=== PATIENT | male | born 2000 | race Caucasian/White ===

== ENCOUNTER 2021-10-26 18:20 | Emergency (ER) | payer OTHER, SELFPAY ==
[2021-10-26 18:39] VITALS: BP 125/84; PULSE 80; RESP 18; TEMP 36.9; O2SAT 100
--- NOTE | 2021-10-26 18:49 | ED.URI ---
HPI - URI/Sore Throat General Chief Complaint: Upper Respiratory Infection Stated Complaint: COVID Symptoms Source: patient and RN notes reviewed Mode of arrival: ambulatory History of Present Illness HPI Narrative: This is a 21-year-old male who presented to urgent care with complaints of a sore throat, headache, congestion, chills, shortness of breath and a cough that all developed on Sunday. Patient used Flonase at home to relieve assessment due to congestion. he is vaccinated. The patient denies CP, palpitation, extremity numbness, lightheadedness, dizziness, constipation, diarrhea, chills, or fever. Related Data Allergies Allergy/AdvReac Type Severity Reaction Status Date / Time No Known Allergies Allergy Verified 10/26/21 18:42 Review of Systems Review of Systems: A 14 organ system Review of Systems was performed and pertinent positives included in the HPI, otherwise remaining ROS is negative. Exam Narrative: GENERAL: This is a well-nourished, well-developed patient, in no apparent distress. HEAD: normocephalic, atraumatic. EYES: PERRL. Sclera clear/white. Vision is grossly intact. EARS: External ears normal, auditory canals clear and without drainage, TMs normal without perforation. Hearing grossly intact. NOSE: External nose normal with no obvious nasal discharge, nares without redness, no rhinorrhea. THROAT: Mucous membranes moist, posterior pharynx clear. NECK: Neck supple, non-tender without lymphadenopathy, masses or thyromegaly. CARDIOVASCULAR: Regular rate and rhythm without murmurs, gallops, or rubs. RESPIRATORY: Clear to auscultation. Breath sounds equal bilaterally. No wheezes, rales, or rhonchi. GASTROINTESTINAL: Abdomen soft, non-tender, nondistended. Bowel sounds are active. No hepato-splenomegaly, or palpable masses. No guarding. SKIN: warm, intact with no suspicious lesions or rash, good texture and turgor. NEURO: awake, alert, and oriented to person, place and time. There were no obvious focal neurologic abnormalities. Steady gait EXTREMITIES: Normal range of motion. No edema. No calf tenderness. Negative Homans sign bilaterally. BACK: Nontender without deformity or crepitance. No flank tenderness. Course Course Emergency Course: Patient will be treated with albuterol, Tessalon Perles, dexamethasone, Flonase, Claritin, and guaifenesin Level of Care: Express Care Visit Vital Signs Vital signs: Vital Signs Temperature 98.4 F 10/26/21 18:39 Pulse Rate 80 10/26/21 18:39 Respiratory Rate 18 10/26/21 18:39 Blood Pressure 125/84 10/26/21 18:39 Pulse Oximetry 100 10/26/21 18:39 Temperature 98.4 F 10/26/21 18:39 Pulse Rate 80 10/26/21 18:39 Respiratory Rate 18 10/26/21 18:39 Blood Pressure 125/84 10/26/21 18:39 Pulse Oximetry 100 10/26/21 18:39 MDM - URI/Sore Throat Differential Diagnosis Differential diagnosis: Likely upper respiratory infection, viral infection, influenza and other (covid) Lab Data Labs: Lab Results 10/26/21 Range/Units 18:38 POC SARS CoV-2 Ag Positive (Negative) Discharge Plan Discharge Clinical Impression: COVID Patient Disposition: Home, Self-Care Condition: Stable Instructions: Antibiotic Form, COVID-19 (Coronavirus Disease 2019) (ED) Additional Instructions: Remain isolation/quarantine means to stay separate from other people, so that sickness is not spread for 10 days. Your Local Health Department will be contacting you to verify that you have received and can follow these instructions. If you have not been contacted, please call your Local Health Department immediately! Follow these guidelines while in isolation: Stay home: Stay in your home or apartment until you are instructed that you can leave. If you need medical care, call ahead so that staff can prepare for your arrival. DO NOT go to your doctor?s office, an ER or urgent care
== END 2021-10-26 19:05 | disposition home or self-care (01) ==
PROVIDERS: Emergency Provider Nurse Practitioner
DX: U07.1 COVID-19 (principal)
CPT/HCPCS: 87426; 99213; C9803; G0463

== ENCOUNTER 2022-03-12 19:48 | Emergency (ER) | payer OTHER, SELFPAY ==
--- NOTE | 2022-03-12 19:49 | ED.EAR ---
HPI - Ear Problem General Chief complaint: Ear Stated complaint: ear problems Time Seen by Provider: 03/12/22 19:54 Source: patient, RN notes reviewed and old records reviewed Mode of arrival: ambulatory Limitations: no limitations History of Present Illness HPI Narrative: 21-year-old male presents to the [facility] with right ear pain since this morning. Patient has not taken anything for his symptoms. States he has had a runny nose and a headache. Left work early today because of the ear pain. Denies chest pain, abdominal pain. No nausea vomiting or diarrhea. Denies fevers. No blurriness, change in vision. MD Complaint: ear pain Related Data Allergies Allergy/AdvReac Type Severity Reaction Status Date / Time No Known Allergies Allergy Verified 03/12/22 19:52 Review of Systems Review of Systems: All systems reviewed & are unremarkable except as noted in HPI and below Constitutional: Constitutional: Reports no additional constitutional complaints, Denies chills and Denies fever(s) Eyes: Eyes: Reports no additional eye complaints ENT: Reports as per HPI, Denies change in voice, Denies dental pain, Denies vertigo, Denies dizziness and Denies throat swelling Comments: Ear pain, right. Rhinorrhea Cardiovascular: Cardiovascular: Reports no additional cardiovascular complaints, Denies chest pain and Denies dyspnea Respiratory: Respiratory: Reports no additional respiratory complaints, Denies cough and Denies dyspnea Gastrointestinal: Gastrointestinal: Reports no additional gastrointestinal complaints, Denies abdominal pain, Denies nausea and Denies vomiting Musculoskeletal: Musculoskeletal: Reports no additional musculoskeletal complaints Integumentary/Breasts: Skin/Breast: Reports system reviewed and no additional complaints, except as docu Neurologic: Reports system reviewed and no additional complaints, except as documented, Denies vertigo and Denies dizziness Psychiatric: Psychiatric: Reports no additional psychiatric complaints Allergic/Immunologic: Allergic/Immunologic: Reports no additional allergic/immunologic complaints and Denies throat swelling PMFSH Past Medical History Medical History (Updated 03/12/22 @ 20:09 by Manisha Nieves APRN) COVID Surgical History Surgical History (Updated 03/12/22 @ 20:06 by Manisha Nieves APRN) No pertinent past surgical history Social History Social History (Updated 03/12/22 @ 20:06 by Manisha Nieves APRN) Gender identity (if verbalized by the patient): Male Comments At the time of my signature, I reviewed and agree with the nursing past medical, surgical, social, and family history. There is no relevant family history pertinent to the patient complaint. Exam Const: General: healthy appearing and no acute distress Nutritional Appearance: well nourished Orientation/consciousness: patient oriented x3 Limitations: no limitations HENMT: Head: normal to inspection Ears: external ears normal, EAC's normal and TM abnormal erythematous (Mildly pink right ear) and with fluid behind the TM bilateral General nose exam: Normal external nose present and Normal nasal mucous membranes and turbinates present Face and sinus: normal facial exam Mouth: Yes Normal oral and palatal mucosa present Throat: posterior oropharynx normal, tonsils normal and uvula midline Eyes: Conjunctivae: conjunctivae normal Pupils: Equal, round and reactive pupils present Neck: Neck: normal visual inspection, no lymphadenopathy and no meningeal signs Chest: Chest palpation & inspection: normal inspection of the chest Resp: Effort & Inspection: normal respiratory effort and no use of accessory muscles Auscultation: clear to auscultation bilaterally, no crackles, no rales, no rhonchi and no wheezes Cardio: Rate: regular rate Rhythm: regular rhythm Skin: General skin exam: normal color Rashes: no rashes Wounds: no wounds Neuro: General: patient oriented x3, gait normal, moves all
[2022-03-12 19:55] VITALS: BP 131/80; PULSE 81; RESP 18; TEMP 37.5; O2SAT 99
== END 2022-03-12 20:16 | disposition home or self-care (01) ==
PROVIDERS: Emergency Provider Nurse Practitioner
DX: H65.02 Acute serous otitis media, left ear (principal); H66.001 Acute suppurative otitis media without spontaneous rupture of ear drum, right ear; Z86.16 Personal history of COVID-19
CPT/HCPCS: 99213; G0463

== ENCOUNTER 2024-02-28 16:15 | Emergency (ER) | payer OTHER, SELFPAY ==
[2024-02-28 16:22] VITALS: BP 133/68; PULSE 85; RESP 18; TEMP 36.7; O2SAT 98
--- NOTE | 2024-02-28 16:31 | ED.MALEGU ---
HPI - Male Genitourinary General Chief complaint: Urogenital-Male Stated complaint: Groin Pain Time Seen by Provider: 02/28/24 16:16 Source: patient Mode of arrival: ambulatory Limitations: no limitations History of Present Illness HPI Narrative: Patient is a 23-year-old male who presents with bilateral testicular pain for 6 days. Patient states pain comes and goes and started in the right testicle and now it is in both. Denies any swelling, discoloration, warmth to scrotum or testicles. Denies any abnormal discharge or changes in urinary habits. Denies any concern for STI. Denies any trauma to testicles. Related Data Allergies Allergy/AdvReac Type Severity Reaction Status Date / Time No Known Allergies Allergy Verified 03/12/22 19:52 Review of Systems Review of Systems: All systems reviewed & are unremarkable except as noted in HPI and below Constitutional: Constitutional: Denies chills, Denies fever(s), Denies headache(s), Denies malaise and Denies weakness Eyes: Eyes: Denies change in vision, Denies eye discharge and Denies irritation ENT: Denies otalgia, Denies headache(s), Denies nasal congestion, Denies nasal discharge, Denies sinus pain and Denies sore throat Cardiovascular: Cardiovascular: Denies chest pain, Denies edema, Denies palpitations and Denies dyspnea Respiratory: Respiratory: Denies cough and Denies dyspnea Gastrointestinal: Gastrointestinal: Denies abdominal pain, Denies diarrhea, Denies nausea and Denies vomiting Genitourinary: Genitourinary: Denies hematuria, Denies dysuria, Denies flank pain, Denies painful ejaculations, Denies penile discharge, Denies scrotal swelling, Denies testicular mass, Reports testicular pain and Denies urinary urgency Musculoskeletal: Musculoskeletal: Denies back pain and Denies numbness Integumentary/Breasts: Skin/Breast: Denies pruritus and Denies rash Neurologic: Denies headache(s), Denies numbness and Denies weakness Psychiatric: Psychiatric: Reports no additional psychiatric complaints Endocrine: Endocrine: Denies palpitations PMFSH Past Medical History Medical History COVID Surgical History Surgical History No pertinent past surgical history Social History Social History Gender identity (if verbalized by the patient): Male Comments At time of signature, agree with nursing past medical, surgical, social and family history. There is no relevant family history pertinent to the presenting complaint. Exam Const: General: cooperative, healthy appearing, comfortable, no acute distress and well nourished Nutritional Appearance: well nourished Orientation/consciousness: patient oriented x3 HENMT: Head: normocephalic and atraumatic Ears: external ears normal Face/Nose/Sinus: Normal external nose present, Normal nares present and normal facial exam Face and sinus: normal facial exam Eyes: General: appearance normal, both eyes and all related structures Pupils: Equal, round and reactive pupils present EOM: EOMs intact bilaterally Neck: Neck: normal visual inspection, full ROM and supple Chest: Chest palpation & inspection: normal inspection of the chest Resp: Effort & Inspection: normal respiratory effort and able to speak in complete sentences Cardio: Rate: regular rate Rhythm: regular rhythm GI: Inspection: normal to inspection GI Palp: No abdominal tenderness and Yes Soft to palpation : General: Yes no CVA tenderness Male General Exam: Yes normal external exam Penis: Yes normal penis and Yes circumcised Meatus: meatus normal Scrotum: scrotum normal, no ecchymosis, not erythematous, testes descended bilaterally, no scrotal swelling and no varicoceles Testes: testicular lie normal, not enlarged, no epididymal induration, epididymal tenderness bilateral, no testicular mass, no te
== END 2024-02-28 16:41 | disposition home or self-care (01) ==
PROVIDERS: Emergency Provider Nurse Practitioner Family
DX: N45.1 Epididymitis (principal)
CPT/HCPCS: 99213; G0463

== ENCOUNTER 2024-04-09 11:53 | Emergency (ER) | payer OTHER, SELFPAY ==
[2024-04-09 12:04] VITALS: BP 131/70; PULSE 65; RESP 18; TEMP 37.1; O2SAT 99
--- NOTE | 2024-04-09 12:18 | ED.URI ---
HPI - URI/Sore Throat General Chief Complaint: Upper Respiratory Infection Stated Complaint: ?Strep Time Seen by Provider: 04/09/24 12:20 Source: patient, RN notes reviewed and old records reviewed Mode of arrival: ambulatory Limitations: no limitations History of Present Illness HPI Narrative: 24 year old male who presents to [facility] care with complaints of sore throat for the past 2 days with no known fevers, chills or sweats. Patient reports no ear pain or acute sinus congestion or drainage, states little cough. Patient reports he has taken Mucinex for his symptoms. MD elicited complaint: cough and sore throat Onset (ago): day(s) (2) Severity: moderate Pain scale (0-10): 5 Able to tolerate fluids by mouth: Yes Exacerbating factors: swallowing Treatments prior to arrival: other (Mucinex) Related Data Allergies Allergy/AdvReac Type Severity Reaction Status Date / Time No Known Allergies Allergy Verified 04/09/24 12:21 Review of Systems Review of Systems: CONSTITUTIONAL: Denies malaise, chills, sweats, or fever. EYES: Denies visual changes, redness, or discharge. ENT: Reports no acute rhinorrhea, congestion, sinus pain,no otalgia and positive for sore throat. CARDIOVASCULAR: Denies chest pain, palpitations, or edema. RESPIRATORY: Reports some cough.? Denies dyspnea. GASTROINTESTINAL: Denies abdominal pain, nausea, vomiting, diarrhea SKIN: Denies rash or itching. MUSCULOSKELETAL: Denies myalgia. NEUROLOGIC: Denies headache. All systems reviewed & are unremarkable except as noted in HPI and below PMFSH Past Medical History Medical History COVID Surgical History Surgical History No pertinent past surgical history Social History Social History (Updated 04/10/24 @ 15:43 by Tyra Dudley NP) Smoking status: Never smoker Alcohol intake: current Alcohol use details: social Substance use type: does not use Gender identity (if verbalized by the patient): Male Comments At time of signature, agree with nursing past medical, surgical, social and family history. There is no relevant family history pertinent to the presenting complaint Exam Narrative: GENERAL: Well-appearing, well-nourished, and in no acute distress. HEAD: Normocephalic EYES: PERRLA, conjunctivae clear ENT: Nares clear, turbinates edematous and erythematous, clear discharge. Mucous membranes moist. TM pearly valladares with dull light reflex bilaterally; no tragal tenderness. Oropharynx erythematous without lesions. Tonsils red enlarged and without exudate, no drooling, no hoarseness, no trismus, uvula midline. NECK: Supple. lymphadenopathy CHEST: Clear to auscultation, breath sounds equal. No wheezing, rhonchi, rales, or stridor. No respiratory distress, speaks in full sentences.SAO2 99% on room air HEART: Regular rate and rhythm. No murmur heard. SKIN: Warm, dry, no rash. NEURO: Alert and oriented x3. PSYCH: Normal mood and affect Course Course Emergency Course: Patient is aware of diagnosis, understands and agrees to treatment plan.? Anticipatory guidance given.? Patient agrees to follow-up as directed and is aware of reasons to seek care at the emergency department. Portions of this record may have been created with voice recognition software Level of Care: Express Care Visit Vital Signs Vital signs: Vital Signs Temperature 37.1 C 04/09/24 12:04 Pulse Rate 65 04/09/24 12:04 Respiratory Rate 18 04/09/24 12:04 Blood Pressure 131/70 04/09/24 12:04 Pulse Oximetry 99 04/09/24 12:04 Oxygen Delivery Room Air 04/09/24 12:04 Temperature 37.1 C 04/09/24 12:04 Pulse Rate 65 04/09/24 12:04 Respiratory Rate 18 04/09/24 12:04 Blood Pressure 131/70 04/09/24 12:04 Pulse Oximetry 99 04/09/24 12:04 Oxygen Delivery Room Air 04/09/24 12:04 Reviewed
== END 2024-04-09 12:55 | disposition home or self-care (01) ==
PROVIDERS: Emergency Provider Registered Nurse
DX: J02.0 Streptococcal pharyngitis (principal); Z86.16 Personal history of COVID-19
CPT/HCPCS: 87880; 99213; G0463

== ENCOUNTER 2024-12-15 09:07 | Emergency (ER) | payer OTHER, SELFPAY ==
--- NOTE | ~2024-12-15 | CT_ITS ---
CT abdomen pelvis w con Ordering provider: Jasmyn Crews PA-C History: 24 years Male with . RUQ pain . Comparison: None. Technique: CT abdomen and pelvis with IV and without oral contrast. Automated exposure control and it erative reconstruction technique were employed. The dose-length product was 595.40 mGy-cm. 100 mL Omn ipaque 350 was given IV. Findings: VISUALIZED LOWER CHEST: Dependent atelectatic changes. UPPER ABDOMINAL ORGANS: Liver: Normal. Gallbladder: Normal. Spleen: Normal. Stomach/duodenum: Normal. Pancreas: Normal. Adrenals: Normal. Kidneys: Normal. PELVIC ORGANS: The bladder is normal. BOWEL AND MESENTERY: Colon: No evidence of diverticulitis. Appendix is not demonstrated. Small Bowel: Normal. No obstruction. Peritoneum/mesentery: No free air or free fluid. No mesenteric lymphadenopathy. RETROPERITONEUM: Normal aorta. No retroperitoneal lymphadenopathy. MUSCULOSKELETAL: Superficial soft tissues: The superficial soft tissues are normal. Bones: Sclerotic area in the right ischium. Follow-up advised. Otherwise, Normal spine. IMPRESSION: 1. No evidence of appendicitis, diverticulitis or intestinal obstruction. Reviewed, dictated and finalized at location A.
[2024-12-15 09:11] VITALS: BP 138/90; PULSE 74; RESP 16; TEMP 36.4; O2SAT 100
--- NOTE | 2024-12-15 09:20 | ECG_ITS ---
Test Date: 2024-12-15 10:04:19 Measurements Intervals [place] Rate: 64 P: 62 NV: 172 QRS: 62 QRSD: 94 T: 38 QT: 356 QTc: 369 Interpretive Statements SINUS RHYTHM No previous ECG available for comparison Electronically Signed On 12-15-2024 11:49:59 CDT by Gael Lopez M.D.
--- NOTE | 2024-12-15 09:20 | ED.ABDPAIN ---
HPI - Abdominal Pain General Chief Complaint: Abdominal Pain Stated Complaint: abd pain Time Seen by Provider: 12/15/24 09:09 Source: patient Mode of arrival: ambulatory Limitations: no limitations History of Present Illness HPI narrative: This is a 24-year-old male that presents to the emergency department for epigastric abdominal pain. Ongoing over the last week. Reports associated nausea and diarrhea. Reports the pain has now localized to his right upper quadrant. He went to urgent care and was found to be seen in the ER for further evaluation. Denies fevers, vomiting. Related Data Allergies Allergy/AdvReac Type Severity Reaction Status Date / Time No Known Allergies Allergy Verified 04/09/24 12:21 Review of Systems Review of Systems: CONSTITUTIONAL: Denies fever GASTROINTESTINAL: Reports abdominal pain, nausea, and diarrhea. GENITOURINARY: Denies dysuria or hematuria. All systems reviewed & are unremarkable except as noted in HPI and below PMFSH Past Medical History Medical History COVID Surgical History Surgical History No pertinent past surgical history Social History Social History (Updated 04/10/24 @ 15:43 by Tyra Dudley NP) Smoking status: Never smoker Alcohol intake: current Alcohol use details: social Substance use type: does not use Gender identity (if verbalized by the patient): Male Exam Narrative: GENERAL: Well-appearing, well-nourished, and in no acute distress. HEAD: Normocephalic, atraumatic. EYES: EOMI. CHEST: Clear to auscultation. No respiratory distress. No wheezes rales or rhonchi HEART: Regular rate and rhythm. No murmur heard. Normal peripheral pulses. ABDOMEN: Soft, nondistended, normal active bowel sounds. Mild tenderness to palpation in the epigastrium, without guarding EXTREMITIES: Normal range of motion. No edema. SKIN: Warm, dry, no rash. NEURO: No focal deficits. Alert and oriented x3. PSYCH: Normal mood and affect Course Course Emergency Course: Patient updated on his workup. Resting comfortably Vital Signs Vital signs: Vital Signs Temperature 97.6 F 12/15/24 09:11 Pulse Rate 74 12/15/24 09:11 Respiratory Rate 16 12/15/24 09:11 Blood Pressure 138/90 12/15/24 09:11 Pulse Oximetry 100 12/15/24 09:11 Oxygen Delivery Room Air 12/15/24 09:11 Temperature 97.6 F 12/15/24 09:11 Pulse Rate 74 12/15/24 09:11 Respiratory Rate 16 12/15/24 09:11 Blood Pressure 138/90 12/15/24 09:11 Pulse Oximetry 100 12/15/24 09:11 Oxygen Delivery Room Air 12/15/24 09:11 MDM - Abdominal Pain MDM Narrative Medical decision making narrative: Patient presents to the emergency department for epigastric and right upper quadrant pain. Ongoing over the last week. Patient is afebrile and nontoxic appearing. Cbc without leukocytosis. Metabolic panel with mild elevation in ALT is 71. Lipase is normal. Urine without evidence of infection. CT abdomen and pelvis without acute findings. Patient updated on his workup. Resting comfortably. Is to follow up with primary provider. He was given warnings to return to the ER Differential Diagnosis Differential diagnosis: Likely abdominal pain, pancreatitis and other (Biliary colic, GERD, gastritis, cholecystitis) Lab Data Attestation: I reviewed the patient's lab results. 12/15/24 09:38 12/15/24 09:38 Labs: Lab Results 12/15/24 12/15/24 Range/Units 09:38 09:45 WBC 6.6 (4.5-10.0) K/mm3 RBC 4.84 (4.6-6.20) M/mm3 Hgb 14.3 (14.0-18.0) g/dL Hct 44.1 (42.0-52.0) % MCV 91.1 (80-100) fl MCH 29.5 (26-34) pg MCHC 32.4 (32-36) g/dl RDW 12.7 (11.5-14.5) % Plt Count 214 (150-375) k/mm3 MPV 9.4 (7.4-10.4) fl Immature Gran % (Auto) 0.3 (0-0.5) % Neut % (Auto) 67.5 (45.5-73.1) % Lymph % (Auto) 22.3 (18.3-44.2) % [place] % (Auto) 8.1 (2.6-8.5) % Eos % (Auto) 1.2 (0-4.4) % Baso % (Auto) 0.6 (0.2-1.2) % Lymph # (Auto) 1.46 (0.9-3.2) K/mm3 [place] # (Auto) 0.5 (0.1-0.6) K/mm3 Eos # (Auto) 0.1 (0-0.3) K/mm3 Baso # (Auto) 0.0 (0.0-0.1) K/mm3 Abs Immat Gran (auto) 0.02 (0.00-0.031) K/mm3 Absolute Neuts (auto) 4.4 (1.3-6.7) K/mm3 Absolute Nucleated RBC 0.000 (0.0-0.012) K/mm3 Nucleated RBC % 0.0 (0.0-0.2) % Sodium 142 (137-145) mmol/L Potassium 4.1 (3.4-5.0) mmol/L Chloride 106 (98-107) mmol/L Carbon Dioxide 29 (22-30) mmol/L Anion Gap 7 (4-12) mmol/L BUN 11 (9-20) mg/dL Creatinine 0.72 (0.7-1.3) mg/dL Estim Creat Clear Calc 133 ml/min Estimated GFR > 60 (59 - ) Glucose 102 (65-110) mg/dL Calcium 9.4 (8.4-10.2) mg/dL Total Bilirubin 0.6 (0.2-1.3) mg/dL AST 29 (17-59) U/L ALT 71 H (6-50) U/L Alkaline Phosphatase 64 (38-126) U/L Troponin I < 0.012 (0.000-0.034) ng/mL Total Protein 7.0 (6.3-8.2) g/dL Albumin 4.6 (3.5-5.1) g/dL Lipase 31 (23-300) U/L Urine Color Yellow (Yellow) Urine Appearance Clear (Clear) Urine pH 8.0 (5.0-9.0) Ur Specific [place] 1.008 (1.001-1.035) Urine Protein Negative (Negative) mg/dL Urine Glucose (UA) Negative (Negative) mg/dL Urine Ketones Negative (Negative) mg/dL Ur Blood (Man) Negative (Negative) Urine Nitrate Negative (Negative) Urine Bilirubin Negative (Negative) Urine Urobilinogen 0.2 (<2.0) mg/dL Leukocyte Esterase Rfl Negative (Negative) [place]/UL Imaging Data Radiologist's impression: ITS Impressions Abdomen/Pelvis CT 12/15/24 10:29 IMPRESSION: 1. No evidence of appendicitis, diverticulitis or intestinal obstruction. ECG Data EKG #1: ECG completion date: 12/15/24 normal rate, sinus rhythm, non-specific ST changes (consistent with early repolarization) and normal QT Critical Care Time Critical Care Time Critical Care Time: No Discharge Plan Discharge Clinical Impression: Epigastric pain, Right upper quadrant abdominal pain Patient Disposition: Home, Self-Care Condition: Stable Instructions: Low Fat Diet (ED), Epigastric Pain (ED) Additional Instructions: Return to the ER if you experience fever, abdominal pain with nausea and vomiting, you are unable to keep down liquids or solids, blood in the stool or any other symptoms that are concerning to you Small, frequent meals. [place] diet. Avoid spicy/acidic foods. Avoid eating just before bedtime. Avoid anti-inflammatories. Take Pepcid daily Follow up with your primary care doctor The radiologist mentioned an abnormality in your right ischium this may need some further imaging/follow up Patient Language: [place]i Prescriptions: No Action amoxicillin 400 mg/5 mL suspension for reconstitution 1,000 mg PO BID 10 Days Qty: 250 0RF Rx Instructions: take all of oral antibiotic as prescribed Follow-up/Referrals: UNKNOWN,DOCTOR [Primary Care Provider] -
[2024-12-15 09:49] LABS: Basophils Percent Auto 0.6 % (0.2-1.2); Eosinophils Absolute Auto 0.1 K/mm3 (0-0.3); Eosinophils Percent Auto 1.2 % (0-4.4); Hematocrit 44.1 % (42.0-52.0); Hemoglobin 14.3 g/dL (14.0-18.0); Immature Granulocyte Absolute 0.02 K/mm3 (0.00-0.031); Immature Granulocyte Percent A 0.3 % (0-0.5); Lymphocytes Absolute Auto 1.46 K/mm3 (0.9-3.2); Lymphocytes Percent Auto 22.3 % (18.3-44.2); Mean Corpuscular HGB Conc 32.4 g/dl (32-36); Mean Corpuscular Hemoglobin 29.5 pg (26-34); Mean Corpuscular Volume 91.1 fl (80-100); Mean Platelet Volume 9.4 fl (7.4-10.4); Monocytes Absolute Auto 0.5 K/mm3 (0.1-0.6); Monocytes Percent Auto 8.1 % (2.6-8.5); Neutrophils Absolute Auto 4.4 K/mm3 (1.3-6.7); Neutrophils Percent Auto 67.5 % (45.5-73.1); Platelet Count Result 214 k/mm3 (150-375); Red Blood Count 4.84 M/mm3 (4.6-6.20); Red Cell Distribution Width 12.7 % (11.5-14.5); White Blood Count 6.6 K/mm3 (4.5-10.0)
[2024-12-15 09:52] LABS: Add Urine Microscopic? NO; Appearance Urine Clear (Clear); Bilirubin Urine Negative (Negative); Blood Urine Negative (Negative); Color Urine Yellow (Yellow); Glucose Urine UA Negative (Negative); Ketones Urine Negative (Negative); Leukocyte Esterase Ur Negative LEU/UL (Negative); Nitrate Urine Negative (Negative); Protein Urine Negative (Negative); Specific Grav Ur 1.008 (1.001-1.035); Urobilinogen Urine 0.2 mg/dL (<2.0)
[2024-12-15] MEDS: ONDANSETRON INJ 4 MG/2 ML VIAL IV PUSH (09:56)
[2024-12-15] MEDS: PANTOPRAZOLE SODIUM IV 40 MG VIAL IV PUSH (09:56)
[2024-12-15 10:00] LABS: Alanine Aminotransferase 71 U/L (6-50); Albumin Level 4.6 g/dL (3.5-5.1); Alkaline Phosphatase 64 U/L (38-126); Anion Gap 7 mmol/L (4-12); Aspartate Amino Transferase 29 U/L (17-59); Bilirubin,Total 0.6 mg/dL (0.2-1.3); Blood Urea Nitrogen 11 mg/dL (9-20); Calcium 9.4 mg/dL (8.4-10.2); Carbon Dioxide 29 mmol/L (22-30); Chloride 106 mmol/L (98-107); Estimated CRCL calculation 133 ml/min; Estimated Glomerular Filt Rate > 60; Glucose 102 mg/dL (65-110); Lipase 31 U/L (23-300); Potassium 4.1 mmol/L (3.4-5.0); Sodium 142 mmol/L (137-145)
--- OUTSIDE RECORDS SUMMARY | 2024-12-15 10:05 | XMS_ITS | Clinical Summary ---
Author Organization [facility] [employer] [place] Address [address] [address] Care Team Providers Care Chief Ophthalmic Technician Name Role Phone Dilia Driscoll MD Primary Care Provider [phone] Allergies Active Allergy Reactions Criticality Noted Date Comments Misael Flavor Unknown 12/15/2023 Medications No known medications Active Problems No known active problems Encounters Date Type Department Care Team Description 12/02/2024 External Device Data STL ABSTRACTION Provider, Abstract 10/30/2024 External Device Data ST[facility] ABSTRACTION Provider, Abstract from Last 3 Months Family History Medical History Relation Name Comments No Known Problems Brother 1 No Known Problems Brother 2 No Known Problems Father Pacemaker Maternal Grandfather No Known Problems Maternal Grandmother No Known Problems Mother Relation Name Status Comments Brother 1 Alive Brother 2 Alive Father Alive Maternal Grandfather Alive Maternal Grandmother Alive Mother Alive Social History Tobacco Use Types Packs/Day Years Used Date Smoking Tobacco: Never Smokeless Tobacco: Never Alcohol Use Standard Drinks/Week Comments Yes 0 (1 standard drink = 0.6 oz pur e alcohol) socially Sex and Gender Information Value Date Recorded Sex Assigned at Not on file Legal Sex Male 10:15 AM CDT Gender Identity Not on file Sexual Orientation Not on file 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 file Not on file N ot on file Last Filed Vital Signs Vital Sign Reading Time Taken Comments Blood Pressure 112/78 02/25/2024 1:51 PM CDT Pulse 77 02/25/2024 1:51 PM CDT Temperature 36.6 C (97.9 F) 02/25/2024 1:51 PM CDT Respiratory Rate 16 02/25/2024 1:51 PM CDT Oxygen Saturation 98% 02/25/2024 1:51 PM CDT Inhaled Oxygen Concentration - - Weight 87.5 kg (193 lb) 02/25/2024 1:51 PM CDT Height 170.2 cm (5' 7 ) 02/25/2024 1:51 PM CDT Body Mass Index 30.23 02/25/2024 1:51 PM CDT Plan of Treatment Upcoming Encounters Date Type Department Care Team (Late st Contact Info) Description 12/19/2024 8:20 AM CDT Office Visit [facility] at [facility] [place] [address] [place] [address] Health Maintenance Due Date Last Done Comments DTAP/TDAP/TD VACCINES (7 - T d or Tdap) 05/26/2021 05/26/2011, 06/19/2005, 12/25/2002, Additional history exists INFLUENZA VACCINE (#1) 2024 HEPATITIS B VACCINES Completed 2001, 2001, 2001 HPV VACCINES Completed 07/03/2013, 10/2011, 06/07/2012 Insurance * Guarantor: [employer] D ([employer]) Account Type Relation to Patient Date of Phone Billing Address Corporate Employer ATTN: [employer] [address] [address] [employer] Care Teams Chief Ophthalmic Technician Relationship Specialty Start Date End Date Dilia Driscoll MD [address] [place] [address] PCP - General Internal Medicine 02/25/24
--- OUTSIDE RECORDS SUMMARY | 2024-12-15 10:05 | XMS_ITS | Patient Health Summary ---
Author Organization [facility] Address [address] [place] [address] Care Team Providers Care Package Line Relief Operator Name Role Phone Ramona Oneal MD Primary Care Provider [phone] Note from [facility] [place],non-owned Affiliates and Associated Physician Practices is amultiple site organization consisting of ambulatory clinics and hospital sitesin [place], [place], [place] and [place]. This disclosure is being madepursuant to the Care Everywhere program and may not contain all information available regarding this patient. Last updated 18.[facility] Medications Be aware that medications may not be up to date on this document. Always verify current medications with the patient. No known medications Active Problems Problem Noted Date Diagnosed Date Short stature (child) 08/08/2016 Social History Tobacco Use Types Packs/Day Years Used Date Smoking Tobacco: Never Tobacco Cessation:Counseling Given: No Alcohol Use Standard Drinks/Week Comments No 0 (1 standard drink = 0.6 oz pur e alcohol) Sex and Gender Information Value Date Recorded Sex Assigned at Not on file Gender Identity Not on file Sexual Orientation Not on file Last Filed Vital Signs Vital Sign Reading Time Taken Comments Blood Pressure 104/80 08/07/2016 3:51 PM CDT Pulse 80 08/07/2016 3:51 PM CDT Temperature - - Respiratory Rate 20 08/07/2016 3:51 PM CDT Oxygen Saturation - - Inhaled Oxygen Concentration - - Weight 63.7 kg (140 lb 6.9 oz) 08/07/2016 3:51 P M CDT Height 157.6 cm (5' 2.05 ) 08/07/2016 3:51 PM CD T Body Mass Index 25.65 08/07/2016 3:51 PM CDT Procedures * IMAGING/RADIOLOGY/XRAY RESULTS ORDER(Performed 08/18/2016) Results * IMAGING/RADIOLOGY/XRAY RESULTS ORDER (08/18/2016 5:48 PM SPINNER OPEN END) Anatomical Region Laterality Modality Other Narrative 08/18/2016 5:48 PM SPINNER OPEN END Ordered by an unspecified provider. Scanned Document IMAGING Care Teams Package Line Relief Operator Relationship Specialty Start Date End Date Ramona Oneal MD [address] [place] [address] PCP - General Pediatrics 06/05/16
--- OUTSIDE RECORDS SUMMARY | 2024-12-15 10:05 | XMS_ITS | Referral Summary ---
Author Organization [facility] Address [address] [place] [address] Care Team Providers Care Vein Pumper Name Role Phone Ramona Oneal MD Primary Care Provider [phone] Source Comments [facility],non-owned Affiliates and Associated Physician Practices is amultiple site organization consisting of ambulatory clinics and hospital sitesin [place], [place], [place] and [place]. This disclosure is being madepursuant to the Care Everywhere program and may not contain all information available regarding this patient. Last updated 18.[facility] Medications Be aware that medications may not be up to date on this document. Always verify current medications with the patient. No known medications Active Problems Problem Noted Date Diagnosed Date Short stature (child) 08/08/2016 Overview (08/08/2016): Short stature; normal bone age radiograph obtained a few years ago. No prior growth records available at the time of this office visit. 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 1. Obtain prior growth records (if available) 2. Obtain bone age radiograph - to assess skeletal maturity & estimate height prediction. 3. Consider selected screening biochemistries - serum TSH, free/total T4, & IGF- 1 - based upon bone age radiograph results 4. Consider provocative growth hormone stimulation testing. 5. Serial examinations. 6. Return appointment in 6 months. 7. I reviewed my impression and recommendations with Mother at the time of the office visit and she were in agreement. Social History Tobacco Use Types Packs/Day Years [...] Mass Index 25.65 08/07/2016 3:51 PM CDT Plan of Treatment Not on file Care Teams Vein Pumper Relationship Specialty Start Date End Date Ramona Oneal MD [address] [place] [address] PCP - General Pediatrics 06/05/16
--- OUTSIDE RECORDS SUMMARY | 2024-12-15 10:05 | XMS_ITS | Clinical Summary ---
Author Organization [facility] [employer] Address [address] [address] Care Team Providers Care Hydroelectric Station Chief Name Role Phone Ramona Oneal MD Primary Care Provider [phone] Source Comments [facility] [employer],non-owned Affiliates and Associated Physician Practices is amultiple site organization consisting of ambulatory clinics and hospital sitesin [place], [place], [place] and [place]. This disclosure is being madepursuant to the Care Everywhere program and may not contain all information available regarding this patient. Last updated 18.[facility] [employer] Medications Be aware that medications may not [...] office visit and she were in agreement. Family History Medical History Relation Name Comments Hypertension Maternal Grandfather Relation Name Status Comments Maternal Grandfather Social History Tobacco Use Types Packs/Day Years [...] 08/07/2016 3:51 PM CDT Plan of Treatment Health Maintenance Due Date Last Done Comments HIV SCREENING 2016 HPV VACCINE (1 - Male 3-dose series) 2016 MENINGOCOCCAL (Group B) VACC INE (1 of 2 - Standard) 2017 HEPATITIS C SCREENING 03/14/2019 DTAP/TDAP/TD VACCINES (1 - Tdap) 2020 HEPATITIS B VACCINE (1 of 3 - 19+ 3-dose series) 2020 COVID-19 VACCINE (1 - 2023-2 5 season) 2024 INFLUENZA VACCINE (#1) 2024 DEPRESSION SCREENING 10/08/2024 ZOSTER VACCINE (1 of 2) 2051 HIB VACCINE Aged Out No longer eligi ble based on patient's age to complete this topic MENINGOCOCCAL VACCINE Aged Out No alberto nadege eligible based on patient's age to complete this topic PNEUMOCOCCAL VACCINE Aged Out No long er eligible based on patient's age to complete this topic Care Teams Hydroelectric Station Chief Relationship Specialty Start Date End Date Ramona Oneal MD [address] [place] [address] PCP - General Pediatrics 06/05/16
[2024-12-15 10:20] LABS: Troponin I < 0.012 ng/mL (0.000-0.034)
--- OUTSIDE RECORDS SUMMARY | 2024-12-15 10:35 | XMS_ITS | Clinical Summary ---
Author Organization [facility] Address [address] [place] [address] Care Team Providers Care General Neurologist Name Role Phone None, Provider MD Primary Care Provider Unavaila ble Allergies Active Allergy Reactions Criticality Noted Date Comments [place] Flavoring Agent (Non-Screening) Unknown 12/15/2023 Medications No known medications Social History Tobacco Use Types Packs/Day Years Used Date Smoking Tobacco: Never Assessed Sex and Gender Information Value Date Recorded Sex Assigned at Not on file Legal Sex Male 4:24 PM CDT Gender Identity Not on file Sexual Orientation Not on file Last Filed Vital Signs Vital Sign Reading Time Taken Comments Blood Pressure 147/72 12/15/2023 1:47 PM OCCUPATIONAL THERAPY PROGRAM DIRECTOR Pulse 78 12/15/2023 1:47 PM OCCUPATIONAL THERAPY PROGRAM DIRECTOR Temperature 37.6 C (99.7 F) 12/15/2023 1:47 PM OCCUPATIONAL THERAPY PROGRAM DIRECTOR Respiratory Rate 18 12/15/2023 1:47 PM OCCUPATIONAL THERAPY PROGRAM DIRECTOR Oxygen Saturation 99% 12/15/2023 1:47 PM OCCUPATIONAL THERAPY PROGRAM DIRECTOR Inhaled Oxygen Concentration - - Weight 81.6 kg (180 lb) 12/15/2023 1:47 PM OCCUPATIONAL THERAPY PROGRAM DIRECTOR Height 170.2 cm (5' 7 ) 12/15/2023 1:47 PM OCCUPATIONAL THERAPY PROGRAM DIRECTOR Body Mass Index 28.19 12/15/2023 1:47 PM OCCUPATIONAL THERAPY PROGRAM DIRECTOR Plan of Treatment Health Maintenance Due Date Last Done Comments Annual Physical 2004 Meningococcal B Vaccine (1 of 2 - Standard) 2017 Hepatitis C 2019 DTaP, Tdap and Td Vaccines (7 - Td or Tdap) 05/26/2021 05/26/2011, 06/19/2005, 12/25/2002, Additional history exists COVID-19 Vaccine ( season) 2024 08/25/2021, 08/04/2021 Influenza Adult (#1) 2024 08/12/2019, 09/29/20 14 Hepatitis B Vaccines Completed 2001, 2001, 2001 Pneumococcal Vaccine: Pediatrics (0 to 5 Years) and At-Risk Patients (6 to 64 Years) Aged Out 06/19/2005, 2001, 2001, Additional history exists No longer eligible based on patient's age to complete this topic Meningococcal Vaccine Aged Out 05/26/2011 No alberto nadege eligible based on patient's age to complete this topic HPV Vaccines Completed 07/23/2019, 05/08, 07/03/2013, Additional history exists RSV Immunizations Under 20 Months Aged Out No longer eligible based on patient's age to [place] [address] [place] [address] [facility] Care Teams General Neurologist Relationship Specialty Start Date End Date None, Provider, PCP - General UNKNOWN PHYSICIAN SPECIALTY 12/15/23
--- OUTSIDE RECORDS SUMMARY | 2024-12-15 10:35 | XMS_ITS | Patient Health Summary ---
Author Organization [facility] [employer] Address [address] [place] [address] Care Team Providers Care Automobile Service Station Attendant Name Role Phone Ramona Oneal MD Primary Care Provider [phone] Note from [facility],non-owned Affiliates and Associated Physician Practices is amultiple site organization consisting of ambulatory clinics and hospital sitesin [place], [place], [place] and [place]. This disclosure is being madepursuant to the Care Everywhere program and may not contain all information available regarding this patient. Last updated 18.[facility] Medications Be aware that medications may not [...] * IMAGING/RADIOLOGY/XRAY RESULTS ORDER (08/18/2016 5:48 PM CHASSIS DRIVER) Anatomical Region Laterality Modality Other Narrative 08/18/2016 5:48 PM CHASSIS DRIVER Ordered by an unspecified provider. Scanned Document IMAGING Care Teams Automobile Service Station Attendant Relationship Specialty Start Date End Date Ramona Oneal MD [address] [place] [address] PCP - General Pediatrics 06/05/16
--- OUTSIDE RECORDS SUMMARY | 2024-12-15 10:35 | XMS_ITS | Clinical Summary ---
Author Organization [facility] [employer] Address [address] [place] [address] Care Team Providers Care Base Cloth Inspector Name Role Phone Ramona Oneal MD Primary Care Provider [phone]- [phone] Source Comments [facility] [employer],non-owned Affiliates and Associated Physician Practices is amultiple site organization consisting of ambulatory clinics and hospital sitesin [place], [place], [place] and [place]. This disclosure is being madepursuant to the Care Everywhere program and may not contain all information available regarding this patient. Last updated 18.[facility] Medications Be aware that medications may not [...] age to complete this topic Care Teams Base Cloth Inspector Relationship Specialty Start Date End Date Ramona Oneal MD [address] [place] [address] PCP - General Pediatrics 06/05/16
--- OUTSIDE RECORDS SUMMARY | 2024-12-15 10:35 | XMS_ITS | Referral Summary ---
Author Organization [facility] [employer] Address [address] [place] [address] Care Team Providers Care Tubing Machine Operator Name Role Phone Ramona Oneal MD Primary Care Provider [phone]- [phone] Source Comments [facility] [employer],non-owned Affiliates and Associated Physician Practices is amultiple site organization consisting of ambulatory clinics and hospital sitesin [place], [place], [place] and [place]. This disclosure is being madepursuant to the Care Everywhere program and may not contain all information available regarding this patient. Last updated 18.[facility] Medications Be aware that medications may not [...] of Treatment Not on file Care Teams Tubing Machine Operator Relationship Specialty Start Date End Date Ramona Oneal MD [address] [place] [address] PCP - General Pediatrics 06/05/16
--- OUTSIDE RECORDS SUMMARY | 2024-12-15 10:35 | XMS_ITS | Clinical Summary ---
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 on file [...] Description 12/19/2024 8:20 AM CDT Office Visit [facility] at Work [email or web address] [place] [address] [place] [address] Health Maintenance Due Date Last Done Comments DTAP/TDAP/TD VACCINES (7 - T d or Tdap) 05/26/2021 05/26/2011, 06/19/2005, 12/25/2002, Additional history exists INFLUENZA VACCINE (#1) 2024 HEPATITIS B VACCINES Completed 2001, 2001, 2001 HPV VACCINES Completed 07/03/2013, 10/2011, 06/07/2012 Insurance * Guarantor: [employer] D [employer]) Account Type Relation to Patient Date of Phone Billing Address Corporate Employer ATTN: [employer] [address] [address] [place] [employer] Care Teams Physical Instructor Relationship Specialty Start Date End Date Dilia Driscoll MD [address] [place] [address] PCP - General Internal Medicine 02/25/24
[2024-12-15 12:08] VITALS: BP 130/74; PULSE 78; RESP 18; TEMP 37.1; O2SAT 98
== END 2024-12-15 12:10 | disposition home or self-care (01) ==
PROVIDERS: Emergency Provider Physician Assistant
DX: R10.13 Epigastric pain (principal); R10.11 Right upper quadrant pain; Z86.16 Personal history of COVID-19
CPT/HCPCS: 36415; 74177; 80053; 81003; 83690; 84484; 85025; 93005; 96374; 96375; 99284; J2405; J2470; Q9967